=== PATIENT | male | born 1975 | race Caucasian/White ===

== ENCOUNTER 2019-10-28 12:25 | Emergency (ER) | payer OTHER ==
[~2019-10-28] VITALS: Ht 182.8 cm; Wt 108.9 kg
[~2019-10-28 12:25] MED LIST: FLEXERIL5 MG PO; NAPROSYN500 MG PO; VICODIN 5/500 505 MG PO
[2019-10-28 13:55] LABS: BASO # 0.1 10*3/uL (0.0-0.1); BASO % 0.6 % (0.0-1.0); EOS # 0.3 10*3/uL (0.0-0.4); EOS % 3.4 % (1.0-4.0); HEMATOCRIT 45.9 % (42.0-52.0); HEMOGLOBIN 15.7 g/dl (14.0-18.0); LYMPH # 2.5 10*3/uL (1.3-4.4); LYMPH % 31.4 % (27.0-41.0); MEAN CELL VOLUME 86.4 fl (80.0-94.0); MEAN CORPUSCULAR HGB 29.6 pg (27.0-31.0); MEAN CORPUSCULAR HGB CONC 34.2 g/dl (33.0-37.0); MEAN PLATELET VOLUME 10.6 fl (9.6-12.3); MONO # 0.6 10*3/uL (0.1-1.0); MONO % 7.5 % (3.0-9.0); NEUT # 4.4 10*3/uL (2.3-7.9); NEUT % 56.3 % (47.0-73.0); PLATELET COUNT AUTOMATED 267 10*3/uL (130-400); RED BLOOD COUNT 5.31 10*6/uL (4.50-5.90); WHITE BLOOD COUNT 7.9 10*3/uL (4.8-10.8)
[2019-10-28 14:04] LABS: ALKALINE PHOSPHATASE 68 U/L (45-117); BUN 19 mg/dl (7-24); CHLORIDE 106 mmol/L (98-107); CREATININE 1.05 mg/dL (0.70-1.30); LIPASE 140 U/L (73-393); POTASSIUM 4.3 mmol/L (3.5-5.1); SGOT/AST 26 IU/L (3-35); SGPT/ALT 72 U/L (12-78); SODIUM 139 mmol/L (136-145); TOTAL PROTEIN 7.4 gm/dL (6.4-8.2)
[2019-10-28 14:06] LABS: TROPONIN I < 0.015 ng/ml (<0.045)
[2019-10-28 14:21] LABS: ACT PARTIAL THROMBO TIME 28.2 SECONDS (20.0-32.1); INTERNATIONAL NORM RATIO 0.9 (2.0-3.5)
[2019-10-28 14:44] LABS: BILIRUBIN NEGATIVE (NEGATIVE); BLOOD NEGATIVE (NEGATIVE); CLARITY CLEAR (CLEAR); COLOR STRAW (YELLOW); GLUCOSE NEGATIVE (NEGATIVE); KETONE NEGATIVE (NEGATIVE); LEUKO ESTERASE NEGATIVE (NEGATIVE); NITRITE NEGATIVE (NEGATIVE); PH 6.5 (5.0-9.0); SPECIFIC GRAVITY 1.025 (1.005-1.030); UROBILINOGEN 0.2 E.U./dl (0.2-1.0)
[2019-10-28 15:21] LABS: EPITHELIAL CELLS 0-2; WBC 0-2 wbc/hpf (0-5)
[2019-10-28 15:22] LABS: BACTERIA TRACE
[2019-10-28] MEDS ORDERED: AUGMENTIN 875-875 MG PO (16:45)
[2019-10-28] MEDS ORDERED: ROBITUSSIN DM 101 OZ PO (16:55)
== END 2019-10-28 16:55 | disposition home or self-care (01) ==
LOC: ED 12:25
PROVIDERS: Nurse Practitioner Family
DX: J01.90 Acute sinusitis, unspecified (principal); R55 Syncope and collapse; R42 Dizziness and giddiness

== ENCOUNTER 2023-01-01 11:33 | Emergency (ER) | payer OTHER ==
[~2023-01-01 11:33] MED LIST changes: +AUGMENTIN 875-875 MG PO; +ROBITUSSIN DM 101 OZ PO
== END 2023-01-01 13:02 | disposition home or self-care (01) ==
LOC: ED 11:33
DX: S76.011A Strain of muscle, fascia and tendon of right hip, initial encounter (principal); S66.911A Strain of unspecified muscle, fascia and tendon at wrist and hand level, right hand, initial encounter; F17.200 Nicotine dependence, unspecified, uncomplicated; W17.89XA Other fall from one level to another, initial encounter; Y93.89 Activity, other specified; Y92.89 Other specified places as the place of occurrence of the external cause; Y99.8 Other external cause status